=== PATIENT | female | born 1945 | race Caucasian/White ===

== ENCOUNTER 2016-06-07 10:42 | Emergency (ER) | payer OTHER ==
[~2016-06-07] VITALS: Ht 161.3 cm; Wt 61.2 kg
[2016-06-07] MEDS ORDERED: CRESTOR10 M1 PO (11:03)
[2016-06-07] MEDS ORDERED: BETAMETHASONE V15 GM (11:04)
[2016-06-07] MEDS ORDERED: AMOXICILLIN500 M2 PO (11:05)
[2016-06-07] MEDS ORDERED: CLOBETASOL PROP15 G1 (11:07)
[2016-06-07] MEDS ORDERED: ESTRACE1 MG VAG (11:07)
[2016-06-07] MEDS ORDERED: RESTASIS1 EACH OPH (11:09)
--- NOTE | 2016-06-07 11:13 | ED ANKLE/FOOT INJURY COMPLAINT ---
History of Present Illness General Chief Complaint: Foot or Ankle Injury Stated Complaint: RT ANKLE PAIN S/P FALL Source: patient Exam Limitations: no limitations Vital Signs & Intake/Output Vital Signs & Intake/Output Vital Signs Date Time Temp Pulse Resp B/P Pulse O2 O2 Flow FiO2 Ox Delivery Rate 06/07 1256 97.1 69 18 170/79 96 06/07 1051 97.6 78 18 191/92 97 Room Air Room Air Allergies Coded Allergies: ciprofloxacin (Intermediate, DIZZINESS 06/07/16) Reconcile Medications Amoxicillin 500 MG CAPSULE 4 CAP PO 1X PREVENTION (Reported) Betamethasone Valerate (Unknown Strength) CREAM..G. (Unknown Dose) PRN rash ( Reported) Clobetasol Propionate (Unknown Strength) OINT...G. (Unknown Dose) PRN EXTERNAL USE (Reported) Cyclosporine (Restasis) 0.05 % DROPERETTE 1 GTT OPH BID DRY EYE (Reported) Estradiol (Estrace) 1 MG TABLET 1 MG VAG EVERY OTHER DAY PREVENT (Reported) Oxycodone HCl/Acetaminophen (Percocet 5-325 MG Tablet) 5 MG-325 MG TABLET 1 TAB PO BID PAIN Rosuvastatin Calcium (Crestor) 10 MG TABLET 1 TAB PO DAILY HLD (Reported) Triage Note: TRIAGE: 71 Y/O FEMALE PRESENTS C/O RIGHT ANKLE PAIN 6-12/25. APPEARS AWOLLEN S/P FALL YESTERDAY AFTERNOON. DID NOT VISIT PCP YESTERDAY. REQUESTING XRAY THIS MORNING. Triage Nurses Notes Reviewed? yes Occurred: yesterday Duration: day(s): (1), constant, continues in ED Timing: recent history Severity: moderate, severe Pain/Injury Location: Right: Ankle. Method of Injury: twisted No Modifying Factors: none HPI: 71-year-old female comes into emergency room with complaints of right ankle pain has been going on since yesterday. Patient reports that she missed a step and came down on her right ankle. Denies any head trauma. Denies any neck pain and back pain. Denies any trauma anywhere else. Patient reports that she was able to walk and noticed swelling and pain later on in the night. Denies any other associated symptoms currently. (HEIDI WOODS,JAIRO) Past History Travel History Traveled to [place] past 21 day No Medical History Any Pertinent Medical History? see below for history Cardiovascular: hyperlipidemia, HEART MURMUR Surgical History Surgical History: non-contributory Psychosocial History What is your primary language Tajik Tobacco Use: Never used ETOH Use: occasional use Illicit Drug Use: denies illicit drug use Family History Hx Contributory? No (JAIRO CARMEN) Review of Systems Review of Systems Constitutional: Reports: no symptoms. EENTM: Reports: no symptoms. Respiratory: Reports: no symptoms. Cardiovascular: Reports: no symptoms. GI: Reports: no symptoms. Genitourinary: Reports: no symptoms. Musculoskeletal: Reports: see HPI. Skin: Reports: no symptoms. Neurological/Psychological: Reports: no symptoms. Hematologic/Endocrine: Reports: no symptoms. Immunologic/Allergic: Reports: no symptoms. All Other Systems: Reviewed and Negative (JAIRO CARMEN) Physical Exam Physical Exam General Appearance: well developed/nourished, mild distress Head: atraumatic Eyes: Bilateral: normal appearance. Ears, Nose, Throat: normal ENT inspection, hearing grossly normal Neck: normal inspection Cardiovascular/Respiratory: no respiratory distress Back: normal inspection Leg/Knee/Thigh Left: normal inspection Ankle Right: soft tissue tenderness, swelling, limited range of motion Foot Right: normal inspection, normal range of motion Neuro/Vascular: normal motor function, normal sensation Tendon: normal tendon function Psychiatric: awake, alert, oriented x 3 Skin: intact, normal color, warm/dry (JAIRO CARMEN) Progress Differential Diagnosis: gout, fracture, dislocation, sprain, contusion Plan of Care: Current Medications Sig/Kary Start time Last Medication Dose Stop Time Status Admin Oxycodone/ 1 TAB ONCE ONE 06/07 1230 UNVr Acetaminophen 06/07 1231 (Percocet) Diagnostic Imaging: Viewed by Me: Radiology Read. Discussed w/RAD: Radiology Read. Radiology Impression: SERVICE DATE: 06/07/16 EXAM TYPE: RAD - XRY-ANKLE 3 OR MORE VIEWS R EXAMINATION: XR ANKLE, RIGHT CLINICAL INFORMATION: Right ankle pain after injury. Evaluate for fracture. COMPARISON: None TECHNIQUE: AP, lateral, and mortise views of the right ankle. FINDINGS: Lateral malleolar soft tissue swelling is seen. There is a nondisplaced transverse fracture of the tip of the distal fibula. The ankle mortise is intact. Old ununited avulsion injury of the medial malleolus is also seen. Trace ankle joint effusion is seen. IMPRESSION: Nondisplaced transverse fracture of the tip of the distal fibula with overlying soft tissue swelling. DICTATED BY: MARY PRESLEY MD DATE/TIME DICTATED:06/07/161138 TIME STUDY ENGINEER:ROBERTO DATE/TIME TRANSCRIBED:1138 (JAIRO CARMEN) Departure Departure Disposition: HOME OR SELF CARE Condition: Stable Clinical Impression Primary Impression: Fracture of distal fibula Referrals: EVERETT PALACIOS APRN (PCP/Family) DEREK WHITFIELD,SHELLY Cortez Additional Instructions: Stay nonweightbearing. Take Percocet for pain. Follow-up with orthopedic doctor. Return if any other concerns worsening symptoms. Please go over all results of today's visit with your primary care doctor. Contact your primary care doctor to let them know you were here in the emergency room. There may be nonspecific findings which may not be related to your visit today here in the emergency room but may require further evaluation and chronic monitoring by your primary care doctor. If you had a laceration today the chance of foreign body always remains. You should follow-up with your primary care doctor for recheck in 3-5 days for a wound check. If you had an x-ray done there is a chance that a fracture could have been missed on initial read and you should follow-up with your primary care doctor for repeat x-rays if symptoms persist. If your blood pressure was elevated here in the emergency room please have rechecked by her primary care doctor within the next 48 hours by your primary care doctor. If you were prescribed a narcotic here in the emergency room or any type of controlled substances you're not allowed to drive while taking this medication or operate any type of heavy machinery. Narcotics can make you feel lightheaded dizziness nausea and can cause constipation. You may need to picker tender helper a stool softener. Thank you for choosing [facility] emergency room. Please return to the emergency room immediately if you have any other concerns worsening of symptoms. Departure Forms: Customer Survey General Discharge Information Prescriptions: Current Visit Scripts Oxycodone HCl/Acetaminophen (Percocet 5-325 MG Tablet) 1 TAB PO BID #10 TAB (JAIRO CARMEN) PA/COMPUTER ART INSTRUCTOR Co-Sign Statement Statement: ED Attending supervision documentation- [X] I saw and evaluated the patient. I have also reviewed all the pertinent lab results and diagnostic results. I agree with the findings and the plan of care as documented in the PA's/COMPUTER ART INSTRUCTOR's documentation. [X] I have reviewed the ED Record and agree with the PA's/COMPUTER ART INSTRUCTOR's documentation. [] Additions or exceptions (if any) to the PAs/COMPUTER ART INSTRUCTOR's note and plan are summarized below: [] (MARYBETH WHITFIELD,DENNY Shepherd) Procedures Splinting Location: right ankle Manual Alignment Performed: No Hand-Made Type: orthoglass Splint: posterior walking Splint Applied By: splint applied by me Pre-Proc Neuro Vasc Exam: normal Post-Proc Neuro Vasc Exam: normal (JAIRO CARMEN) Critical Care Note Critical Care Note Critical Care Time: 30-74 min (JAIRO CARMEN)
--- NOTE | 2016-06-07 11:45 | RADIOLOGY REPORT ---
EXAMINATION: XR ANKLE, RIGHT CLINICAL INFORMATION: Right ankle pain after injury. Evaluate for fracture. COMPARISON: None TECHNIQUE: AP, lateral, and mortise views of the right ankle. FINDINGS: Lateral malleolar soft tissue swelling is seen. There is a nondisplaced transverse fracture of the tip of the distal fibula. The ankle mortise is intact. Old ununited avulsion injury of the medial malleolus is also seen. Trace ankle joint effusion is seen. IMPRESSION: Nondisplaced transverse fracture of the tip of the distal fibula with overlying soft tissue swelling.
[2016-06-07] MEDS ORDERED: PERCOCET 5-3251 EACH PO (12:19)
[2016-06-07 12:56] VITALS: BP 170/79
== END 2016-06-07 12:52 ==
LOC: ERH 10:42
DX: S82.491A Other fracture of shaft of right fibula, initial encounter for closed fracture (principal); W19.XXXA Unspecified fall, initial encounter
CPT/HCPCS: 73610-RT